=== PATIENT | male | born 1970 | race Caucasian/White ===

== ENCOUNTER 2016-11-06 15:04 | Day surgery (SDC) | payer BC ==
[~2016-11-06] VITALS: Ht 172.7 cm; Wt 87.0 kg
[2016-11-06] MEDS ORDERED: GABA100C14 PO (15:58)
[2016-11-06] MEDS ORDERED: ALBU2TAB5 PO (15:58)
[2016-11-06] MEDS ORDERED: REMI IV (15:58)
[2016-11-06] MEDS ORDERED: MESA800T2 PO (15:58)
[2016-11-06 16:00] VITALS: Ht 172.7 cm; Wt 87.0 kg
[2016-11-06 16:21] VITALS: BP 135/88; PULSE 71; RESP 16
[2016-11-06] MEDS ORDERED: MIDAZOLAM 1 MG/ML 2 ML INJ ONE ×2 (16:51→16:52)
[2016-11-06] MEDS ORDERED: FENTAnyl 50 MCG/ML VIAL ONE (16:52)
--- NOTE | 2016-11-06 17:00 | GILP ---
DATE OF PROCEDURE: PREOPERATIVE DIAGNOSIS: History of ulcerative colitis. The patient stopped taking the medications. POSTOPERATIVE DIAGNOSIS: Distal colitis from the rectum to splenic flexure. Right colon and transverse colon is normal mucosa. DESCRIPTION OF PROCEDURE: The patient was put in the left lateral decubitus after obtaining informed consent. He was sedated, monitored on oximetry, EKG, blood pressure. Advanced the Olympus video colonoscope all the way to the right colon and cecum. Ileocecal valve was identified. Cecum, ascending colon , and transverse colon had normal mucosa, normal vascularity. Random biopsies were done, but some of the biopsy at the splenic flexure got mixed into the first bottle. The distal colon, descending colon, sigmoid colon was biopsied and the rectosigmoid and rectum were also biopsied and placed in bottles 2 and 3, respectively. Also I collected the fluid stool for ova and parasites. Dear Dr. Zachery Goddard: This patient has aggressive nonhealing distal colitis. He has stopped taking medication, as it was not given to him, as he had changes in insurance, so I have requested him to go on Apriso 0.375 grams, 4 capsules in the morning and Rowasa 4 mg at bedtime to the rectum and keep it overnight. He will see me in 4 weeks. Meanwhile, I have encouraged him to come to my office to give him some samples of Apriso while HE get this medication started. Pt needs to have chest x ray TB QUANTIFERON GOLD test He probably requires to go back on Infliximab IV infusions at least once a month, and this will be arranged probably as an outpatient after testing him further. Dictated By: JESSIE RODRIGUEZ Conf#: [id number] DID#: [id number] CC: Zachery Goddard MD;*EndCC* MTDD
[2016-11-06 17:05] VITALS: BP 115/68; RESP 20
== END 2016-11-06 17:58 | disposition home or self-care (01) ==
LOC: GIL 15:04
PROVIDERS: ATTEND Internal Medicine
DX: K51.90 Ulcerative colitis, unspecified, without complications (principal); K62.89 Other specified diseases of anus and rectum; E11.9 Type 2 diabetes mellitus without complications; J45.909 Unspecified asthma, uncomplicated
CPT/HCPCS: 45380; 87177; 88305; J2250; J3010; Z7610

== ENCOUNTER 2017-10-25 13:05 | Day surgery (SDC) | END 2017-10-25 14:55 | disposition home or self-care (01) ==

== ENCOUNTER 2018-02-08 09:13 | Emergency (ER) | END 2018-02-08 10:44 | disposition home or self-care (01) ==

== ENCOUNTER 2018-09-09 12:38 | Day surgery (SDC) | payer BC ==
[~2018-09-09] VITALS: Ht 185.4 cm; Wt 90.2 kg
[~2018-09-09 12:38] MED LIST: ALBU2TAB5 PO; CYCL10TA7 PO; HYDR-4011 PO; MESA800T2 PO; NAPR-985 PO; REMI IV
[2018-09-09 14:13] VITALS: Ht 185.4 cm; Wt 90.2 kg
[2018-09-09] MEDS ORDERED: LORA10CA PO (14:25)
[2018-09-09 14:58] VITALS: BP 119/70; PULSE 70; RESP 20
[2018-09-09] MEDS ORDERED: MIDAZOLAM 1 MG/ML 2 ML INJ ONE ×2 (15:45)
[2018-09-09] MEDS ORDERED: MEPERIDINE 50 MG INJ ONE (15:46)
[2018-09-09] MEDS ORDERED: FENTAnyl 50 MCG/ML VIAL ONE (15:46)
== END 2018-09-09 15:45 | disposition home or self-care (01) ==
LOC: GIL 12:38
PROVIDERS: ATTEND Internal Medicine
DX: K51.30 Ulcerative (chronic) rectosigmoiditis without complications (principal); E11.9 Type 2 diabetes mellitus without complications; J45.909 Unspecified asthma, uncomplicated
CPT/HCPCS: 45378; 88305; J2175; J2250; J3010; Z7610